=== PATIENT | male | born 1990 | race African-American/Black ===

== ENCOUNTER 2016-08-09 16:33 | Observation (INO) ==
[2016-08-09] MEDS ORDERED: DIPH/TET/ACEL PERT BOOSTER VACCINE 0.5 ML VIAL IM ONE ×2 (17:06→17:46)
[2016-08-09] MEDS ORDERED: ONDANSETRON 4 MG/2 ML VIAL IV STA (17:14)
[2016-08-09] MEDS ORDERED: HYDROmorphone 2 MG/1 ML VIAL IV STA (17:14)
--- NOTE | 2016-08-09 17:41 | Emergency Department Note ---
IHarriet Emily, am scribing for, and in the presence of, Kristin Rivas DO 17:24. IRob Debra, DO, personally performed the services described in this documentation, ascribed by Maday Larios in my presence, and it is both accurate and complete [id number] . Arrival - Arrival Chief Complaint: Wound/Laceration Stated Complaint: toe amputation ED Nursing Triage Note: Brought in by EMS c/o laceration to left great toe and left 2nd toe-states that he accidentally ran over his foot with a zinc plate grainer. Partial amputation noted to left great toe. Pressure dressing applied per EMS. 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 Pt was profusely bleeding entering ED with partial amputation of great left toe, but pressure dressing was applied and under control. Pt's tetanus shot is not UTD. No other complaint/pain in ED. Pt's last meal was hot pockets this morning at 10 before incident. Onset (ago): hour(s) Consistency: constant Severity: moderate Severity scale (1-10): 7 Quality: stabbing, aching Allergies/Adverse Reactions: Allergies Allergy/AdvReac Type Severity Reaction Status Date / Time No Known Allergies Allergy Verified 07/14/14 00:53 Home Medications: Home Medications Medication Instructions Recorded Confirmed Type HYDROcodone/ACETAMIN 7.5-325 2 tablet PO Q4H PRN #30 tablet 08/10/16 Rx [[place] 7.5-325] Review of System - Review of System 12 point system: reviewed and no additional remarkable complaints except as stated - Review of System Constitutional: Absent: fever Skin: Present: lesions (laceration to left great toe and abrasion to 2nd left toe; bleeding controlled in ED). Absent: rash Neurological: Absent: headache Psychiatric: Absent: anxiety Medical,Surgical,& Family Hx - Medical History Psychological: History of: ADHD - Surgical History Surgical History: noncontributory - Family History Family History: noncontributory - Social History Smoking Status: Never smoker Frequency of Alcohol Use: None Type of Drug Use: None Marital Status: Single Lives With:: Parent Functional capacity: independent ambulation Exam Vital Signs: Vital Signs Temperature 97.8 F 08/10/16 11:25 Pulse Rate 70 08/10/16 11:25 Respiratory Rate 18 08/10/16 11:25 Blood Pressure 139/85 08/10/16 11:25 O2 Sat by Pulse Oximetry 98 08/10/16 11:25 - General General appearance: alert, in no apparent distress - Head Head exam: Present: atraumatic, normocephalic - Eye Eye exam: Present: PERRL, EOMI - ENT ENT exam: Present: mucous membranes moist. Absent: mucous membranes dry - Neck Neck exam: Present: full ROM. Absent: tenderness - Chest Chest inspection: Present: symmetric chest wall rise. Absent: tenderness - Respiratory Respiratory exam: Present: normal lung sounds bilaterally. Absent: respiratory distress - Cardiovascular Cardiovascular exam: Present: regular rate, normal rhythm, normal heart sounds - Abdominal Exam Abdominal exam: Present: soft. Absent: tenderness - Extremities Exam Extremities exam: Present: tenderness (left great toe has avulsion on top and left second toe with abrasion; bleeding controlled). Absent: full ROM, pedal edema - Neurological Exam Neurological exam: Present: alert, oriented X3, CN II-XII intact. Absent: motor sensory deficit - Psychiatric Psychiatric exam: Present: normal affect, normal mood - Skin Skin exam: Present: warm, dry Disposition Clinical Impression: Laceration, Avulsion of skin, Traumatic amputation of great toe of left foot Disposition: Still a Patient Condition: Stable New Prescriptions: Rx's Medication Instructions Recorded HYDROcodone/ACETAMIN 7.5-325 2 tablet PO Q4H PRN #30 tablet 08/10/16 [[place] 7.5-325]
[2016-08-09] MEDS ORDERED: HYDROmorphone 2 MG/1 ML VIAL ONE (17:46)
[2016-08-09] MEDS ORDERED: ONDANSETRON 4 MG/2 ML VIAL ONE (17:46)
[2016-08-09] MEDS ORDERED: ceFAZolin 2,000 MG in SODIUM CHLORIDE 0.9% 100 ML IV STA (18:00)
[2016-08-09] MEDS ORDERED: ceFAZolin 1,000 MG VIAL ONE (18:02)
--- NOTE | 2016-08-09 18:05 | Orthopedic History & Physical ---
History of Present Illness Chief complaint: Lawnmower injury left foot History of present illness: Mr. Ahumada is a 25 year old male See dictated report Home Medications Medication Instructions Recorded Confirmed Type No Known Home Medications [No 08/09/16 08/09/16 History Known Home Medications] Allergies Allergy/AdvReac Type Severity Reaction Status Date / Time No Known Allergies Allergy Verified 07/14/14 00:53 Medical,Surgical,& Family Hx - Medical History Psychological: History of: ADHD - Social History Smoking Status: Never smoker Frequency of Alcohol Use: None Type of Drug Use: None Exam - Constitutional Vitals: Period Temp Pulse Resp BP Sys/Oliva Pulse Ox Last 24 Hr 98.6 F-98.6 F 71-97 16-16 153-153/82-82 98
[2016-08-09] MEDS ORDERED: BUPIVACAINE 0.25% 50 ML VIAL ONE (18:12)
--- NOTE | 2016-08-09 18:13 | XRay Report ---
XR toes LT Indication: Toe laceration Comparison: None Technique: Frontal, lateral, and oblique views of the toes of the left foot. Findings: There is bone/soft tissue avulsion of the first digit at the level of the mid aspect of the distal phalanx. Nondisplaced fracture line noted laterally/proximally within the remaining distal phalanx with intra-articular extension. There is a subcentimeter bone fragment noted at the avulsion site. Nondisplaced transverse fracture line noted through the distal aspect of the distal phalanx of the second digit. IMPRESSION: As above. PROCEDURE INTERPRETED AT [facility] DEPARTMENT OF RADIOLOGY Final Report Signed by: Dr Fredy Balderas
[2016-08-09] MEDS ORDERED: PROMETHAZINE 25 MG/1 ML VIAL IM PRN (18:15)
[2016-08-09] MEDS ORDERED: MAGNESIUM HYDROXIDE SUSP 30 ML UDCUP PO PRN (18:15)
[2016-08-09] MEDS ORDERED: HYDROmorphone 2 MG/1 ML VIAL IV PRN ×2 (18:15→18:20)
[2016-08-09] MEDS ORDERED: ONDANSETRON 4 MG/2 ML VIAL IV PRN (18:15)
[2016-08-09] MEDS ORDERED: MIDAZOLAM 2 MG/2 ML VIAL ONE ×2 (19:44)
[2016-08-09] MEDS ORDERED: fentaNYL 100 MCG/2 ML VIAL ONE (19:45)
[2016-08-09] MEDS ORDERED: KETAMINE 500 MG/10 ML VIAL ONE (19:45)
--- NOTE | 2016-08-09 23:24 | History and Physical Report ---
DATE OF ADMISSION: 08/09/2016 HISTORY: A 25-year-old black male injured his left foot when he slipped sliding it under a running l awnmower. He sustained amputation of the great toe as well as an injury to the second for which he w as brought to [facility]. He was started on antibiotic, the tetanus was updated, and I was asked to evaluate regarding his forefoot injury. No other injury sustained. PAST MEDICAL HISTORY: Anxiety disorder. ALLERGIES: NONE. MEDICATIONS: None. PHYSICAL EXAMINATION GENERAL: A well-developed, well-nourished male. He is awake, alert, and responds to questions appro priately. HEENT: Within normal limits. CHEST: Clear. HEART: Regular rate and rhythm. ABDOMEN: Soft, nontender. /RECTAL: Deferred. EXTREMITIES: He has no pain about either upper extremity or on the right lower. On the left side, bala coffey has traumatic injury to the left forefoot. There is a beveled amputation to the great toe, which e xtends across the IP joint dorsally and proximally and then out distally through the pulp of the grea t toe. There is no gross contamination on grass. The second toe reveals a small superficial lacerat ion. Radiograph confirmed the toe amputation of left great toe through the distal phalanx as well as fract ure to the second toe. IMPRESSION: LAWNMOWER INJURY, LEFT FOOT WITH OPEN FRACTURES AND AMPUTATION OF LEFT GREAT TOE AND SEC OND. PLAN: I have discussed with he and his family present the diagnosis and treatment recommendations. He will emergently go to the OR for washout and repair. This will necessitate shortening in the grea t toe so that soft tissue coverage can be obtained. The second toe will need only simple washout. Bala coffey appear to understand and agreed with the plan.
--- NOTE | 2016-08-10 00:17 | Operative Note ---
DATE: 08/09/2016 PREOPERATIVE DIAGNOSIS: TRAUMATIC LAWNMOWER INJURY TO THE LEFT FOREFOOT WITH GREAT TOE AMPUTATION AN D OPEN FRACTURE OF LEFT SECOND. POSTOPERATIVE DIAGNOSIS: SAME. OPERATIVE PROCEDURE: IRRIGATION AND DEBRIDEMENT OF OPEN FRACTURES LEFT FOREFOOT, GREAT TOE AND SECON D WITH FORMALIZATION OF GREAT TOE AMPUTATION AND INCISION AND DRAINAGE AND REPAIR SECOND LEFT TOE. SURGEON: Jose Hinson Jr., MD ANESTHESIA: MAC with forefoot block. INDICATIONS: A 25-year-old black male injured today when he slipped sliding on his foot under a sprayer insecticide that was running. He sustained the above-described injury to the great toe and second. He was taken to the operating room for emergent washout and repair. OPERATIVE PROCEDURE: With the patient in the operating room under forefoot block and MAC anesthesia, the left lower extremity was prepped and draped in usual sterile manner, limb was elevated, and tour niquet inflated to 275 mmHg. The soft tissue flap was not large enough to cover the tip of the great toe so the bone was removed through the IP joint, still the bone was too prominent and probably we h ad to amputate the bone through the proximal phalanx just proximal to the heads of the proximal phala nx. This resulted in the necessary soft tissue recoverage it was required, it was irrigated, any and all gross debris was irrigated and debrided. The second toe was also washed out and had a very supe rficial beveled laceration. The flap of the plantar aspect of great toe was brought up and stitched with interrupted vertical mattress sutures. The second toe stitched with mattress sutures only. Kamari rile soft dressing was applied and tourniquet was deflated at 20 minutes.
[2016-08-10] MEDS: LACTATED RINGERS 1,000 ML IV SCH ×2 (01:03→07:45)
--- NOTE | 2016-08-10 08:26 | Orthopedic Progress Note ---
Orthopedics - Subjective Interval history: Dressing dry pain control fair will start PT getting up with crutches he may he will walk to some degree but no pain and no walking on the forefoot I will see him in 1 week Exam - Constitutional Vitals: Period Temp Pulse Resp BP Sys/Oliva Pulse Ox Last 24 Hr 97.0 F-98.6 F 49-97 12-18 116-153/59-95 95-100
--- NOTE | 2016-08-10 08:28 | Discharge Summary ---
Hospital Course - Hospital Course Hospital Course: Admitted following a lawnmower injury left foot underwent emergent surgery discharged home Diagnosis - Discharge Diagnosis (1) Traumatic amputation of great toe of left foot Status: Acute (2) Open fracture of phalanx of left second toe Status: Acute Discharge Plan - Discharge Data Disposition: Disch To Home/Self Care Condition at Discharge: Stable Discharge Diet: advance to your usual diet Activity: as per physical therapy Hygiene: keep area(s) dry Weight Bearing at Discharge: non-weight bearing Driving: not until seen by doctor - Discharge Medications New HYDROcodone/ACETAMIN 7.5-325 [[place] 7.5-325] 2 tablet PO Q4H PRN #30 tablet PRN Reason: Pain Severe (8-10) - Follow Up or Referral - Forms/Instructions Additional Discharge Instructions: Discharge home discharge medications Nar[place] as needed #30 no refills Keflex 5 days diet as tolerated keep dressing clean dry and intact crutches for mobilization may weight-bear on heel but no weightbearing on forefoot follow-up with me in 1 week August 17 Exam - Constitutional Vitals: Period Temp Pulse Resp BP Sys/Oliva Pulse Ox Last 24 Hr 97.0 F-98.6 F 49-97 12-18 116-153/59-95 95-100 DS: Provider Date of admission: 08/09/16 18:07 Primary care physician: . No PCP Attending physician on admission: Jose Hinson Jr., MD Consults: 08/09/16 18:15 Consult to Physical Therapy [CONS] Routine Reason for Physical Therapy: Evaluate and Treat Consult Comment: Crutch training crutch training nonweightbearing on left Discharging clinician: Jose Hinson Jr., MD
[2016-08-10 11:34] VITALS: BP 139/85
--- NOTE | 2016-08-14 14:15 | Pathology Report from [facility] ---
[facility] [place] ACCESSION # : [id number] PATIENT NAME : Tate Hobson ORDERING DR : GLENDY CAICEDO JR, MD CLINICAL HX: Left foot injury POST-OP DX: Same SPECIMEN INFO: Left great toe portion GROSS DESCRIPTION: Received in formalin labeled TATE HOBSON is an aggregate of bone and soft tissue measuring 3.5 x 3.5 cm. Indoor Landscaper/Gardener sections of tissue are submitted in one cassette. DIAGNOSIS FOR TATE HOBSON: LEFT GREAT TOE: Gangrene. COLLECTED DATE: 08/10/2016 [facility] [place] DATE: 08/11/2016 ELECTRONICALLY SIGNED BY: Ney Harris III, M.D. 08/11/2016 - 9:29:18 [email or web address]
== END 2016-08-10 12:37 | disposition home or self-care (01) ==
LOC: EDBD → EDUNIT# → N.ED 16:33 → N.EDINP 16:33 → N.3E 20:38
PROVIDERS: ADMIT Orthopaedic Surgery; ATTEND Orthopaedic Surgery